=== PATIENT | male | born 1950 | race Caucasian/White ===

== ENCOUNTER 2016-12-25 16:47 | Emergency (ER) | payer OTHER ==
[2016-12-25 17:45] VITALS: BP 130/60
--- NOTE | 2016-12-25 18:33 | UC ---
Elbow Pain - HPI Summary HPI Summary: complaint of right elbow pain that started 12/23/16 has a wound in his elbow that he had for over a week for the last 2 days the skin around his elbow has become warm and redness in spreading into his forearm pian with movement of elbow denies fever and chills denies trauma to elbow taking acetaminophen with some relief - History of Current Complaint Chief Complaint: UCUpperExtremity Stated Complaint: RT ARM WARM,SWOLLEN,RED Hx Obtained From: Patient Character: Aching Aggravating Factor(s): Movement Alleviating Factor(s): Rest, OTC Meds Associated Signs And Symptoms: Positive: Swelling, Redness - Allergies/Home Medications Allergies/Adverse Reactions: Allergies Allergy/AdvReac Type Severity Reaction Status Date / Time No Known Allergies Allergy Verified 12/25/16 17:33 Home Medications: Home Medications Atorvastatin* [Lipitor*] 20 mg PO 1700 12/25/16 [History Confirmed 12/25/16] Omeprazole 1 tab PO DAILY 12/25/16 [History Confirmed 12/25/16] amLODIPine/Benazepril 08/01(NF [Lotrel 10(NF)] 1 cap PO DAILY 12/25/16 [ History Confirmed 12/25/16] rOPINIRole TAB* [Requip TAB*] 2 mg PO DAILY 12/25/16 [History Confirmed 12/25/16 ] PMH/Surg Hx/FS Hx/Imm Hx Previously Healthy: Yes Cardiovascular History Of: Reports: Hypertension - Surgical History Surgical History: Yes Surgery Procedure, Year, and Place: hernia repair at age 3 - Family History Known Family History: Negative: Cardiac Disease, Hypertension, Diabetes - Social History Occupation: Retired Lives: With Family Alcohol Use: Daily Alcohol Amount: 1-2 beers, 1 wine Substance Use Type: None Smoking Status (MU): Current Every Day Smoker Type: Cigars - Immunization History Most Recent Influenza Vaccination: fall 2015 Review of Systems Constitutional: Negative Skin: Other - erythema -right elbow Eyes: Negative ENT: Negative Respiratory: Negative Cardiovascular: Negative Gastrointestinal: Negative Genitourinary: Negative Motor: Negative Neurovascular: Negative Musculoskeletal: Other: - right elbow pain Neurological: Negative Psychological: Negative All Other Systems Reviewed And Are Negative: Yes Physical Exam Triage Information Reviewed: Yes Appearance: No Pain Distress, Well-Nourished Vital Signs: Initial Vital Signs Temp 99.3 F 12/25/16 17:36 Pulse 85 12/25/16 17:36 Resp 16 12/25/16 17:36 BP 130/60 12/25/16 17:36 Pulse Ox 97 12/25/16 17:36 Vital Signs Reviewed: Yes Eyes: Positive: Conjunctiva Clear ENT: Positive: Pharynx normal, TMs normal. Negative: Nasal congestion Neck: Positive: No Lymphadenopathy Respiratory: Positive: Lungs clear, Normal breath sounds, No respiratory distress Cardiovascular: Positive: RRR, No Murmur, Pulses Normal, Brisk Capillary Refill Abdomen Description: Positive: Nontender, Soft Bowel Sounds: Positive: Present Musculoskeletal: Positive: Other: - RUE- erythematous area from 5cm above elbow to mid forearm, warm to touch slight swelling around the joint, full ROM Neurological: Positive: Alert Psychological Exam: Normal Skin: Positive: Other - see musculoskeletal Elbow Pain Course/Dx - Course Course Of Treatment: exam completed. will treat for cellulits with PCP followup. x-ray shows no joint effusion, afebrile, no tachycardia - Differential Dx/Diagnosis Differential Diagnosis/HQI/PQRI: Cellulitis, Infection, Joint Effusion Provider Diagnoses: cellulitis, right elbow pain Discharge - Discharge Plan Condition: Stable Disposition: HOME Prescriptions: Sulfamethox/Trimethoprim DS* [Bactrim DS 800/160 TAB*] 1 tab PO BID #14 tab Referrals: Antolin Trejo MD [Primary Care Provider] - Additional Instructions: Start antibiotic as directed Increase fluids and rest Take acetaminophen or ibuprofen for fever or pain Please review your discharge instructions. If your symptoms do not improve please call your primary care provider or return to urgent care CELLULITIS What is Cellulitis? Cellulitis is a bacterial infection of the skin and, sometimes, of the tissues beneath the skin. The skin normally has many types of bacteria on it, but intact skin is an effective barrier that keeps bacteria from entering and growing within the body. When there is a break in the skin, bacteria can enter the body and grow there, causing infection. The infection usually affects outer layers of the skin first, and then spreads deeper into body tissues. Cellulitis can affect any area of the body covered by skin, but it is most common on the face or lower part of the legs. Symptoms Might Include: Skin redness that increases in size as the infection spreads Tight, glossy, "stretched" appearance of the skin Pain or tenderness of the area The affected area may be warm or hot to the touch A thin red line (along a vein) from the cellulitis toward the heart Fever Chills, shaking Muscle aches pains Joint stiffness because of swelling around a joint Treatment Recommendations: The healthcare provider may have prescribed an antibiotic medicine. The medicine should be taken until it is completely gone, even if you are feeling better. If you stop taking the medicine early, the infection may not be completely gone, and the medication may not work the next time. If the infection is on your arm or leg, keep it elevated. You may use warm, wet compresses to relieve the pain and help healing. Soak a clean cloth in warm water, wring it out a little, and apply it to the affected site. Leave the soak in place for 15 minutes and repeat often throughout the day. Rest until the fever is gone and the pain and redness have lessened. You may take ibuprofen (Motrin, Advil), or acetaminophen (Tylenol) for pain. These will help ease some of the symptoms but will not cure the infection. Call Your Doctor or Return Here IF: Your fever does not go down with treatment, or it increases to more than 101 F. You are not starting to get better with the treatment within 24 to 36 hours. You have increasing pain, swelling, or chills. You feel drowsy and lethargic, or you have vomiting or diarrhea. You find the redness is spreading or there are red streaks coming from the infected area. The joint or bone under the infected skin becomes painful after the skin has started to heal. You have any new symptoms that worry you.
--- NOTE | 2016-12-25 18:59 | RAD ---
INDICATION: Swollen joint. TECHNIQUE: 2 views of the right elbow were obtained. FINDINGS: There is soft tissue swelling along the posterior aspect of the proximal ulna. This is most prominent posterior to the olecranon process of the ulna. The bones are in normal alignment. No joint effusion or fracture is seen. IMPRESSION: SOFT TISSUE SWELLING.
== END 2016-12-25 19:14 | disposition home or self-care (01) ==
LOC: UCEAST 16:47
DX: L03.113 Cellulitis of right upper limb (principal); M25.521 Pain in right elbow; F17.210 Nicotine dependence, cigarettes, uncomplicated
CPT/HCPCS: 99202; G0463

== ENCOUNTER 2016-12-27 16:17 | Emergency (ER) | payer OTHER ==
[2016-12-27 18:33] VITALS: BP 163/71
== END 2016-12-27 19:05 | disposition left against medical advice (07) ==
LOC: ED 16:17
DX: L03.90 Cellulitis, unspecified (principal); Z53.21 Procedure and treatment not carried out due to patient leaving prior to being seen by health care provider